=== PATIENT | male | born 1990 | race Hispanic/Latino ===

== ENCOUNTER 2019-08-22 08:21 | Emergency (ER) | payer MEDICAID ==
[2019-08-22] MEDS ORDERED: LORAZEPAM 2 MG/ML 1 ML VIAL ONE (08:25)
== END 2019-08-22 15:39 | disposition home or self-care (01) ==
LOC: EDH 08:21
DX: R56.9 Unspecified convulsions (principal)
CPT/HCPCS: 36415; 71045; 74176; 80053; 80177; 80305; 81001; 83690; 85025; 96372; 99285; J2060